=== PATIENT | male | born 1960 | race Caucasian/White ===

== ENCOUNTER 2019-02-21 06:56 | Emergency (ER) | payer OTHER ==
[~2019-02-21] VITALS: Ht 180.3 cm; Wt 121.1 kg
[2019-02-21] MEDS ORDERED: LIPITOR10 MG PO (07:06)
[2019-02-21] MEDS ORDERED: COZAAR 25 MG TA25 M1 PO (07:07)
[2019-02-21] MEDS ORDERED: PRAMIPEXOLE DI0.5 MG PO (07:07)
[2019-02-21 07:34] LABS: URINE BILIRUBIN NEGATIVE (Negative); URINE BLOOD NEGATIVE (Negative); URINE CLARITY CLEAR; URINE COLOR YELLOW; URINE GLUCOSE-RANDOM* NEGATIVE (Negative); URINE KETONES NEGATIVE (Negative); URINE LEUKOCYTES-REFLEX NEGATIVE (Negative); URINE NITRITE-REFLEX NEGATIVE (Negative); URINE PROTEIN (DIPSTICK) NEGATIVE (Negative); URINE UROBILINOGEN 0.2 E.U./dl (0.2-1.0)
[2019-02-21 07:38] LABS: ABSOLUTE NEUTROPHILS 5.5 thou/uL (1.4-8.2); BASOPHILS 0.7 % (0.0-2.0); HEMATOCRIT 44.5 % (42.0-52.0); HEMOGLOBIN 15.2 gm/dL (14.0-18.0); LYMPHOCYTES 30.3 % (24.0-44.0); MCH 31.5 pg (26.0-34.0); MCHC 34.2 g/dL (28.0-37.0); MCV 92.1 fL (80.0-100.0); MONOCYTES 8.6 % (1.0-8.0); PLATELET COUNT 258 thou/uL (150-400); POLYS 58.4 % (36.0-66.0); RBC 4.84 mil/uL (4.50-6.00); RDW 14.2 % (10.5-14.5); WBC 10.3 thou/uL (4.0-11.0)
[2019-02-21 07:46] LABS: CREATININE 0.9 mg/dL (0.7-1.3); POTASSIUM 4.8 mmol/L (3.5-5.1)
[2019-02-21 08:20] VITALS: BP 127/67
[2019-02-21] MEDS ORDERED: ULTRAM 50MG TAB50 MG PO (08:20)
[2019-02-21] MEDS ORDERED: NAPROSYN500 MG PO (08:20)
[2019-02-21] MEDS ORDERED: NORFLEX100 MG PO (08:20)
== END 2019-02-21 08:20 | disposition home or self-care (01) ==
LOC: ER 06:56
PROVIDERS: Emergency Medicine
DX: S29.012A Strain of muscle and tendon of back wall of thorax, initial encounter (principal); F17.210 Nicotine dependence, cigarettes, uncomplicated; I10 Essential (primary) hypertension; E78.00 Pure hypercholesterolemia, unspecified; Z88.8 Allergy status to other drugs, medicaments and biological substances; X50.1XXA Overexertion from prolonged static or awkward postures, initial encounter; Y92.89 Other specified places as the place of occurrence of the external cause; Y93.89 Activity, other specified; Y99.8 Other external cause status

== ENCOUNTER 2020-03-06 01:05 | Emergency (ER) | payer OTHER ==
[~2020-03-06] VITALS: Ht 180.3 cm; Wt 112.5 kg
[~2020-03-06 01:05] MED LIST: COZAAR 25 MG TA25 M1 PO; LIPITOR10 MG PO; NAPROSYN500 MG PO; NORFLEX100 MG PO; PRAMIPEXOLE DI0.5 MG PO; ULTRAM 50MG TAB50 MG PO
[2020-03-06] MEDS ORDERED: NEURONTIN 300M300 M2 PO (01:18)
[2020-03-06 01:51] LABS: BASOPHILS 1.1 % (0.0-2.0); EOSINOPHILS 1.4 % (0.0-3.0); HEMATOCRIT 44.6 % (42.0-52.0); HEMOGLOBIN 14.8 gm/dL (14.0-18.0); LYMPHOCYTES 22.7 % (24.0-44.0); MCH 30.8 pg (26.0-34.0); MCHC 33.2 g/dL (28.0-37.0); MCV 92.8 fL (80.0-100.0); MONOCYTES 9.4 % (1.0-8.0); PLATELET COUNT 302 thou/uL (150-400); POLYS 65.4 % (36.0-66.0); RBC 4.81 mil/uL (4.50-6.00); RDW 13.5 % (10.5-14.5); WBC 10.6 thou/uL (4.0-11.0)
[2020-03-06 01:54] LABS: ANION GAP 5 mmol/L (7-16); BUN 22 mg/dL (7-18); CALCIUM 8.7 mg/dL (8.5-10.1); CHLORIDE 98 mmol/L (98-107); CO2 30 mmol/L (21-32); CREATININE 1.1 mg/dL (0.7-1.3); GLUCOSE 111 mg/dL (74-106); POTASSIUM 3.2 mmol/L (3.5-5.1); SODIUM 133 mmol/L (136-145)
[2020-03-06] MEDS ORDERED: NAPROSYN500 MG PO (01:58)
[2020-03-06] MEDS ORDERED: NORFLEX100 MG PO (01:58)
[2020-03-06 02:08] LABS: ALBUMIN 3.5 g/dL (3.4-5.0); LIPASE 80 U/L (73-393); SGOT 38 U/L (15-37); SGPT 45 U/L (30-65); TOTAL BILIRUBIN 0.4 mg/dL (0.2-1.0); TOTAL PROTEIN 7.3 g/dL (6.4-8.2); TROPONIN-I <0.06 ng/mL (<0.06)
[2020-03-06 02:58] VITALS: BP 172/68
[2020-03-06 03:10] LABS: URINE BILIRUBIN NEGATIVE (Negative); URINE BLOOD NEGATIVE (Negative); URINE CLARITY CLEAR; URINE COLOR YELLOW; URINE GLUCOSE-RANDOM* NEGATIVE (Negative); URINE KETONES NEGATIVE (Negative); URINE LEUKOCYTES-REFLEX NEGATIVE (Negative); URINE NITRITE-REFLEX NEGATIVE (Negative); URINE PROTEIN (DIPSTICK) NEGATIVE (Negative); URINE SPECIFIC GRAVITY >= 1.030 (1.005-1.035); URINE UROBILINOGEN 0.2 E.U./dl (0.2-1.0)
--- NOTE | 2020-03-07 08:02 | EKG ---
[facility] [place] [address] ELECTROCARDIOGRAM REPORT Name: JALYN NIELSON Room #: DEP [facility]#: [id number] Admission: 03/06/20 Attend Phys: Discharge: 03/06/20 Date of : 62 Report #: [id number] THIS REPORT FOR: cc: Jose Terry MD, Mark L. MD Lundgren,Christiano Holguin MD [facility] ~ THIS REPORT FOR: //name// [facility] ED Test Date: 2020-03-06 Test Time: 02:50:48 Pat Name: JALYN NIELSON Department: Room: Gender: Non Emergency Services Ambulance Driver: [place] [id number] : 1960 Requested By: Ralph Carranza Order Number: [id number] MD: Christiano Sanchse Measurements Intervals [place] Rate: 82 P: 64 SC: 184 QRS: 45 QRSD: 92 T: 32 QT: 366 QTc: 428 Interpretive Statements Sinus rhythm Normal tracing No previous ECG available for comparison Electronically Signed On 03-07-2020 8:02:37 CDT by Christinao Sanches [email or web address] <ELECTRONICALLY SIGNED> By: Christiano Sanches MD, [facility] 03/07/20 0802 9 9 Christiano Sanches MD, FACC /EPI
== END 2020-03-06 02:59 | disposition home or self-care (01) ==
LOC: ER 01:05
PROVIDERS: Emergency Medicine
DX: M62.830 Muscle spasm of back (principal); I10 Essential (primary) hypertension; E78.00 Pure hypercholesterolemia, unspecified; F17.210 Nicotine dependence, cigarettes, uncomplicated; Z79.899 Other long term (current) drug therapy; Z88.8 Allergy status to other drugs, medicaments and biological substances